=== PATIENT | female | born 1985 | race Caucasian/White ===

== ENCOUNTER 2018-09-14 09:10 | Inpatient (IN) | payer OTHER ==
[~2018-09-14] VITALS: Ht 170.2 cm; Wt 96.0 kg
[~2018-09-14 09:10] MED LIST: ALPRAZOLAM ER1 MG PO; AMOX TR-K CLV1 EAC1 PO; BUTALB-ACETAMI1 EACH PO; CIPRO500 MG PO; DASETTA1 EAC1 PO; DOXYCYCLINE HY100 MG PO; EXPECTA PRENAT1 EACH PO; METRONIDAZOLE250 MG PO; MICONAZOLE 7100 MG PV; OXYCODON-ACETA1 EAC2 PO; UNISOM50 MG PO; ZOLPIDEM TARTRA10 MG PO
--- NOTE | 2018-09-16 07:38 | PR ---
[facility] [address] [facility] [place], [place] [address] Signed PP Progress Notes Datetime Report Generated by RUBEN: 09/16/2018 07:38 SUBJECTIVE: [id number] Pain: Within normal limits Vital Signs: [id number] Vital Signs: Reviewed; Within Normal Limits EXAM: [id number] Cardiovascular: Not Done Respiratory: Not Done Abdomen/Uterus: Abnormal Lochia: Normal Vulva/Perineum: Not Done Breasts: Not Done CVA Tenderness: Not Done Extremities: Normal Incision: Not Applicable Progress: Normal Exam Comments: Fundus firm, NT @ U. H/H 11.4/33, WBC 11.3, plat 140k IMPRESSION/PLAN/PROCEDURES: [id number] Impression: Normal progression Plan: Continue present management Progress Notes: Doing well overall. Probable D/C in am. Signing Physician: Kristen Kearns MD Copies: ~ *Electronically Signed* 09/16/18 0738 KRISTEN KEARNS MD PATIENT NAME: KAY SIMEON PROGRESS NOTE DATE OF : 85 PHYSICIAN: KRISTEN KEARNS MD RPT #: [id number] REPORT IS CONFIDENTIAL AND NOT TO BE RELEASED WITHOUT AUTHORIZATION
--- NOTE | 2018-09-17 08:36 | PR ---
[facility] [address] [facility] [place] [address] Signed PP Progress Notes Datetime Report Generated by CPN: 09/17/2018 08:36 SUBJECTIVE: [id number] Pain: Within normal limits Vital Signs: [id number] Vital Signs: Reviewed; Within Normal Limits EXAM: [id number] Cardiovascular: Not Done Respiratory: Not Done Abdomen/Uterus: Abnormal Lochia: Normal Vulva/Perineum: Not Done Breasts: Not Done CVA Tenderness: Not Done Extremities: Normal Incision: Not Applicable Progress: Normal Exam Comments: Fundus firm, NT @ U-1. IMPRESSION/PLAN/PROCEDURES: [id number] Impression: Normal progression Plan: Discharge Procedures: None Progress Notes: Doing well. She is ready for D/C. Signing Physician: Kristen Kearns MD Copies: ~ *Electronically Signed* 09/17/18 0836 KRISTEN KEARNS MD PATIENT NAME: KAY SIMEON PROGRESS NOTE DATE OF : 85 PHYSICIAN: KRISTEN KEARNS MD RPT #: [id number] REPORT IS CONFIDENTIAL AND NOT TO BE RELEASED WITHOUT AUTHORIZATION
== END 2018-09-17 10:30 | disposition home or self-care (01) | DRG 806 ==
LOC: FBC 09:10
PROVIDERS: ADMIT Obstetrics & Gynecology
PROC: 10E0XZZ Delivery of Products of Conception, External Approach (ICD-10-PCS; principal; 2018-09-15)
PROC: 0KQM0ZZ Repair Perineum Muscle, Open Approach (ICD-10-PCS; 2018-09-15)
PROC: 0UQMXZZ Repair Vulva, External Approach (ICD-10-PCS; 2018-09-15)
PROC: 10907ZC Drainage of Amniotic Fluid, Therapeutic from Products of Conception, Via Natural or Artificial Opening (ICD-10-PCS; 2018-09-15)
PROC: 3E0P7VZ Introduction of Hormone into Female Reproductive, Via Natural or Artificial Opening (ICD-10-PCS; 2018-09-15)
PROC: 00HU33Z Insertion of Infusion Device into Spinal Canal, Percutaneous Approach (ICD-10-PCS; 2018-09-15)
PROC: 3E0R3BZ Introduction of Anesthetic Agent into Spinal Canal, Percutaneous Approach (ICD-10-PCS; 2018-09-15)
DX: O13.4 Gestational [pregnancy-induced] hypertension without significant proteinuria, complicating childbirth (principal); O99.354 Diseases of the nervous system complicating childbirth; Z37.0 Single live birth; G43.009 Migraine without aura, not intractable, without status migrainosus; Z3A.39 39 weeks gestation of pregnancy; O76 Abnormality in fetal heart rate and rhythm complicating labor and delivery; O99.824 Streptococcus B carrier state complicating childbirth; O70.1 Second degree perineal laceration during delivery; O71.82 Other specified trauma to perineum and vulva; Z79.899 Other long term (current) drug therapy
CPT/HCPCS: 01960; 36415; 82565; 84450; 84520; 84550; 85025; 85027; 94760; J2540; J2590; J7060

== ENCOUNTER 2020-01-12 06:06 | Inpatient (IN) | payer OTHER ==
[~2020-01-12] VITALS: Ht 170.2 cm; Wt 101.6 kg
--- NOTE | 2020-01-12 11:25 | PR ---
[facility] [address] [facility] [place], [place] [address] Signed Progress Notes IP Datetime Report Generated by CPN: 01/12/2020 11:25 PROGRESS NOTES: [id number] Impression: Normal Progression of Labor; Reassuring Heart Rate Procedures: Artificial ROM; Sterile Vag Exam Plan: Continue Present Management VITAL SIGNS: [id number] Vital Signs: Reviewed; Within Normal Limits EXAM: [id number] Dilatation: 4.0 Effacement: 60 Station: -2 Contractions: q 6 to 7 min, mild MEMBRANES: [id number] Comments: Comfortable after epidural. Progressing. FETUS A: [id number] FHR Baseline: 140 Variability: Moderate 6-25bpm Accelerations: 15X15 Decelerations: None FHR Category: Category I Presentation: Vertex Comments on Fetus A: No evidence of metabolic acidosis FETUS B: [id number] Signing Physician: Kristen Kearns MD Copies: ~ *Electronically Signed* 01/12/20 1125 KRISTEN KEARNS MD PATIENT NAME: KAY SIMEON PROGRESS NOTE DATE OF : 85 PHYSICIAN: KRISTEN KEARNS MD RPT #: [id number] REPORT IS CONFIDENTIAL AND NOT TO BE RELEASED WITHOUT AUTHORIZATION
--- NOTE | 2020-01-13 07:23 | PR ---
[facility] [address] [facility] [place], [place] [address] Signed PP Progress Notes Datetime Report Generated by RUBEN: 01/13/2020 07:23 SUBJECTIVE: [id number] Pain: Within Normal Limits Vital Signs: [id number] Vital Signs: Reviewed; Within Normal Limits EXAM: Ongoing Cardiovascular: Not Done Respiratory: Not Done Abdomen/Uterus: Abnormal Lochia: Normal Vulva/Perineum: Not Done Breasts: Not Done CVA Tenderness: Not Done Extremities: Normal Incision: Not Applicable Progress: Normal Exam Comments: Fundus firm, NT @ U-1 H/H 12.2/34.8, WBC 10.1, plat 153k IMPRESSION/PLAN/PROCEDURES: [id number] Impression: Normal Progression Plan: Discharge Procedures: None Progress Notes: Doing well. She is ready for D/C later today. Signing Physician: Kristen Kearns MD Copies: ~ *Electronically Signed* 01/13/20722 KRISTEN KEARNS MD PATIENT NAME: KAY SIMEON PROGRESS NOTE DATE OF : 85 PHYSICIAN: KRISTEN KEARNS MD RPT #: [id number] REPORT IS CONFIDENTIAL AND NOT TO BE RELEASED WITHOUT AUTHORIZATION
--- NOTE | 2020-01-13 13:04 | NUR ---
MET WITH PT'S AND NEW FATHER KEVIN. HE WAS EXCITED, THINGS SEEMED WELL. GAVE BLESSING AND WILL FOLLOW NEEDED
== END 2020-01-13 17:30 | disposition home or self-care (01) | DRG 806 ==
LOC: FBC 06:06
PROVIDERS: ADMIT Obstetrics & Gynecology; ATTEND Obstetrics & Gynecology
PROC: 10E0XZZ Delivery of Products of Conception, External Approach (ICD-10-PCS; principal; 2020-01-12)
PROC: 0KQM0ZZ Repair Perineum Muscle, Open Approach (ICD-10-PCS; 2020-01-12)
PROC: 3E0P7VZ Introduction of Hormone into Female Reproductive, Via Natural or Artificial Opening (ICD-10-PCS; 2020-01-12)
PROC: 10907ZC Drainage of Amniotic Fluid, Therapeutic from Products of Conception, Via Natural or Artificial Opening (ICD-10-PCS; 2020-01-12)
PROC: 00HU33Z Insertion of Infusion Device into Spinal Canal, Percutaneous Approach (ICD-10-PCS; 2020-01-12)
PROC: 3E0R3BZ Introduction of Anesthetic Agent into Spinal Canal, Percutaneous Approach (ICD-10-PCS; 2020-01-12)
DX: O36.63X0 Maternal care for excessive fetal growth, third trimester, not applicable or unspecified (principal); F31.61 Bipolar disorder, current episode mixed, mild; Z37.0 Single live birth; Z3A.39 39 weeks gestation of pregnancy; O66.0 Obstructed labor due to shoulder dystocia; O70.1 Second degree perineal laceration during delivery; O69.1XX0 Labor and delivery complicated by cord around neck, with compression, not applicable or unspecified; O99.214 Obesity complicating childbirth; E66.9 Obesity, unspecified; O99.344 Other mental disorders complicating childbirth; Z79.899 Other long term (current) drug therapy
CPT/HCPCS: 01960; 36415; 85027; A9270; J2590; J2795; J7121

== ENCOUNTER 2020-09-24 21:39 | Emergency (ER) | payer OTHER ==
[~2020-09-24] VITALS: Ht 182.9 cm; Wt 101.7 kg
--- OUTSIDE RECORDS SUMMARY | 2020-09-24 21:42 | XMS ---
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 Caleb has no Care Guidelines for this patient. Andrei VISIT COUNT (12 MO.) 1 JEANETTE Bauman TOTAL 1 NOTE: Visits indicate total known visits. 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
[2020-09-24] MEDS ORDERED: TOPIRAMATE25 MG PO (22:18)
[2020-09-24] MEDS ORDERED: ZOLPIDEM TARTRA10 MG PO (22:18)
[2020-09-24] MEDS ORDERED: LITHIUM CARBON450 MG PO (22:18)
[2020-09-24] MEDS ORDERED: PRENATAL 19 CH1 EACH PO (22:19)
[2020-09-24] MEDS ORDERED: ZIPRASIDONE HCL40 MG PO (22:19)
== END 2020-09-24 23:32 | disposition home or self-care (01) ==
LOC: ED 21:39
DX: G43.909 Migraine, unspecified, not intractable, without status migrainosus (principal); G47.00 Insomnia, unspecified; Z79.899 Other long term (current) drug therapy
CPT/HCPCS: 70450; 96374; 96375; 99283-25; J1200; J1885; J2765; J7030

== ENCOUNTER 2021-07-03 15:53 | Emergency (ER) | payer OTHER ==
[~2021-07-03 15:53] MED LIST changes: +LITHIUM CARBON450 MG PO; +PRENATAL 19 CH1 EACH PO; +TOPIRAMATE25 MG PO; +ZIPRASIDONE HCL40 MG PO
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
== END 2021-07-03 20:03 | disposition home or self-care (01) ==
LOC: ED 15:53 → EDBD 17:19 → ED 20:03
DX: M54.2 Cervicalgia (principal); M54.6 Pain in thoracic spine; V49.9XXA Car occupant (driver) (passenger) injured in unspecified traffic accident, initial encounter
CPT/HCPCS: 70450; 72125; 72128; 96374; 96375; 99284-25; A9270; J2270; J2405

== ENCOUNTER 2021-09-08 20:37 | Emergency (ER) | payer OTHER ==
[~2021-09-08] VITALS: Ht 170.2 cm; Wt 67.0 kg
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
[2021-09-08] MEDS ORDERED: DEXTROAMP-AMPHE20 MG PO (21:04)
== END 2021-09-08 21:34 | disposition home or self-care (01) ==
LOC: ED 20:37
DX: S61.412A Laceration without foreign body of left hand, initial encounter (principal); G47.00 Insomnia, unspecified; G43.909 Migraine, unspecified, not intractable, without status migrainosus; Z79.899 Other long term (current) drug therapy; W26.0XXA Contact with knife, initial encounter
CPT/HCPCS: 12001; 99282-25

== ENCOUNTER 2021-10-13 18:08 | Emergency (ER) | payer OTHER ==
[~2021-10-13] VITALS: Ht 170.2 cm; Wt 67.0 kg
[~2021-10-13 18:08] MED LIST changes: +DEXTROAMP-AMPHE20 MG PO
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
[2021-10-13] MEDS ORDERED: RIZATRIPTAN10 M1 PO (19:15)
== END 2021-10-13 20:00 | disposition home or self-care (01) ==
LOC: ED 18:08
DX: S01.01XA Laceration without foreign body of scalp, initial encounter (principal); W01.190A Fall on same level from slipping, tripping and stumbling with subsequent striking against furniture, initial encounter; Z79.899 Other long term (current) drug therapy
CPT/HCPCS: 12002; 99282-25